=== PATIENT | male | born 2000 | race Caucasian/White ===

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

== ENCOUNTER 2022-08-27 20:37 | Emergency (ER) | payer OTHER ==
[~2022-08-27] VITALS: Ht 175.3 cm; Wt 79.4 kg
[2022-08-27 20:45] VITALS: BP_SYST 128
[2022-08-27] MEDS ORDERED: ACET-2634 PO (21:04)
== END 2022-08-27 21:11 | disposition home or self-care (01) ==
LOC: SED 20:37
DX: S01.112A Laceration without foreign body of left eyelid and periocular area, initial encounter (principal); Z79.899 Other long term (current) drug therapy; W22.8XXA Striking against or struck by other objects, initial encounter; Y93.89 Activity, other specified; Y92.89 Other specified places as the place of occurrence of the external cause; Y99.8 Other external cause status
CPT/HCPCS: 99282

== ENCOUNTER 2023-04-28 00:49 | Emergency (ER) | payer BC, OTHER ==
[~2023-04-28] VITALS: Ht 177.8 cm; Wt 81.6 kg
[~2023-04-28 00:49] MED LIST: ACET-2634 PO
[2023-04-28 01:03] VITALS: BP_SYST 144; PULSE 84; RESP 16; TEMP 98.5; O2SAT 98
[2023-04-28] MEDS ORDERED: DIPHTH,PERTUSS(ACELL),TET VAC 0.5 ML VIAL (Tdap) I.M. ONE (02:15)
[2023-04-28] MEDS ORDERED: LIDOCAINE 1% 10 MG/ML, 20 ML MDV INJ ONE (02:15)
[2023-04-28] MEDS ORDERED: ACET-2634 PO (02:45)
== END 2023-04-28 02:53 | disposition home or self-care (01) ==
LOC: SED 00:49
DX: S01.111A Laceration without foreign body of right eyelid and periocular area, initial encounter (principal); Z79.899 Other long term (current) drug therapy; Y04.0XXA Assault by unarmed brawl or fight, initial encounter; Y93.89 Activity, other specified; Y92.89 Other specified places as the place of occurrence of the external cause; Y99.8 Other external cause status
CPT/HCPCS: 90715; 99283